=== PATIENT | male | born 1940 | race Caucasian/White ===

== ENCOUNTER → 2018-07-14 12:41 | Outpatient (CLI) | payer MEDICARE, MEDICAID, SELFPAY ==
[2014-10-31 20:11] VITALS: BMI 23.0
--- NOTE | 2018-07-14 09:50 | ABS_PTH ---
PATIENT: PAPITO SAM LOC: [facility] U#:[id number] AGE/SX: 85/M ROOM: RE07/14/[address]: Dr. Roque Bower MD : [id number] BED: DIS: SPEC #: [id number] RECD: 07/14/18 12:17 STATUS: RENNY VIKY #: [id number] SHAYNA: 07/14/18 09:[address]: Roque Bower DEPT: SURGICAL PATHOLOGY RECD BY: Mark Garcia Tissues: Abdomen, NOS Procedures: Special Stain Group I Surgery Specimen Level IV AFB Stain (control) GMS Stain (control) HEADER OPERATION: Wound debridement abdomen PRE-OP DIAGNOSIS: Abdominal abscess TISSUE SUBMITTED: Abdominal tissue MICROSCOPIC DIAGNOSIS Skin and soft tissue of abdomen, excision: Consistent with ulceration and associated abscess formation. Negative for acid-fast bacilli and fungal organisms. AM:wilder 07/15/18 COMMENT Case has been reviewed in consultation with Dr. Fernandez who concurs with the above diagnosis. IDC:SJ MICROSCOPIC DESCRIPTION Slides are reviewed. GROSS DESCRIPTION Received in fixative is one container labeled with the patient's name and designated abdomen abscess. The specimen consists of an ellipse of light arechiga excised skin measuring 2.7 x 1.6 and depth of excision measuring 0.6 cm. The specimen is inked, serially sectioned and totally submitted in two cassettes. / AM:wilder 07/14/18 TC:2 CPT: 62925, 12702 x2
--- OUTSIDE RECORDS SUMMARY | 2018-10-15 17:54 | XMS RPT_ITS ---
:1940 Author Organization OHIP Care Team Providers Name Role Phone OSMANY WATT Attending Unavailable OSMANY WATT Referring Unavailable OSMANY WATT Attending Unavailable OSMANY WATT Referring Unavailable CRISTOBAL CARVAJAL MD Admitting Unavailable CRISTOBAL CARVAJAL MD Attending Unavailable CRISTOBAL CARVAJAL MD Primary Care Unavailable CRISTOBAL CARVAJAL MD Consulting Unavailable PROVIDER, UNKNOWN Consulting Unavailable PROVIDER, UNKNOWN Consulting Unavailable PROVIDER, UNKNOWN Consulting Unavailable CRISTOBAL CARVAJAL MD Admitting Unavailable CRISTOBAL CARVAJAL MD Attending Unavailable CRISTOBAL CARVAAJL MD Primary Care Unavailable CRISTOBAL CARVAJAL MD Consulting Unavailable PROVIDER, UNKNOWN Consulting Unavailable PROVIDER, UNKNOWN Consulting Unavailable PROVIDER, UNKNOWN Consulting Unavailable Sathish Roque Attending Unavailable Cebul Roque Referring Unavailable Cebul Roque Attending Unavailable LATOUFJASONROS Referring Unavailable Cebul, Roque Attending Unavailable LATOUFCRISTOBAL Referring Unavailable PROBLEMS PROBLEMS DATE TYPE CONDITION / CODE ATTENDING STATUS SOURCE 08/03/2018 Unknown L72.3 - Sebaceous Cebul, Roque Active [facility] / [facility] L72.3(ICD-10) Hospital Repository 08/03/2018 Unknown L08.9 - Local Cebul, Roque Active [facility] infection of the Community skin and Hospital subcutaneous Repository tissue, unspecified / L08.9(ICD-10) 07/21/2018 Unknown L02.211 - Roque Bower Active [facility] Cutaneous abscess Community of abdominal wall Hospital / L02.211(ICD-10) Repository 07/19/2018 Unknown I96 - Gangrene, Roque Bower Active [facility] not elsewhere Community classified / Hospital I96(ICD-10) Repository 04/20/2018 Active Unknown / OSMANY WATT Active [facility](Unknown) Clinic Main [place] Repository 07/27/2017 Admitting Type 2 diabetes LATOUF, BUTROS Active [facility] Diagnosis mellitus with [facility] diabetic [facility] kidney disease / Repository E1122(ICD-10) 07/27/2017 Principle Type 2 diabetes LATOUF, BUTROS Active [facility] [place] Diagnosis mellitus with [facility] diabetic [facility] kidney disease / Repository E1122(ICD-10) 07/27/2017 Secondary Hypertensive LATOUF, BUTROS Active [facility] Diagnosis chronic kidney [facility] disease with stage Hospital 1 through stage 4 Repository chronic kidney disease, or unspecified chronic kidney disease / I129(ICD-10) 07/27/2017 Secondary Chronic kidney LATOUF, BUTROS Active [facility] [place] Diagnosis disease, stage 3 [facility] (moderate) / Hospital N183(ICD-10) Repository 07/27/2017 Secondary Heart failure, LATOUF, BUTROS Active [facility] [place] Diagnosis unspecified / [facility] I509(ICD-10) Hospital Repository 07/27/2017 Secondary Other terminal block assembler LATOUF, BUTROS Active [facility] [place] Diagnosis (current) drug [facility] therapy / Hospital U21838(ICD-10) Repository 07/27/2017 Secondary Hyperlipidemia, LATOUF, BUTROS Active [facility] [place] Diagnosis unspecified / [facility] E785(ICD-10) Hospital Repository 07/27/2017 Secondary Difficulty in LATOUF, BUTROS Active [facility] [place] Diagnosis walking, not [facility] Hospital classified / Repository R262(ICD-10) 07/27/2017 Secondary Muscle weakness LATOUF, BUTROS Active [facility] [place] Diagnosis (generalized) / [facility] M6281(ICD-10) Hospital Repository 07/27/2017 Secondary Encounter for LATOUF, BUTROS Active [facility] [place] Diagnosis screening for [facility] malignant neoplasm [facility] of prostate / Repository Z125(ICD-10) PROCEDURES PROCEDURES No Procedure Records FoundRESULTS RESULTS HEMOGLOBIN A1C Collected: 08/03/2018 Status: F Source: [facility] 4:10 AM CLINIC REFERENCE REPOSITORY TYPE CODE TESTS RESULT OUT OF REFERENCE UNITS RANGE LAB HGBA1C(BHUMI 4.3-5.6 % NC) High Hemoglobin A1c 6.1 LAB HBA0(LOINC mg/dL ) Est. Average Glucose 128 Performed By: #### HBA1C #### [facility] Routine Lab [address] [place] [address] CBC (NO DIFF) Collected: 08/03/2018 Status: F Source: [facility] 4:10 AM [facility] REPOSITORY TYPE CODE TESTS RESULT OUT OF RANGE REFERENCE UNITS LAB CBC (NO DIFF)(LOINC ) CBC (NO DIFF) Result Comment: CBC(WITHOUT DIFFERENTIAL) LAB WBC(LOINC) 4.5 - 10.8 x 10EE3/UL WBC 10.8 LAB RBC(LOINC) 4.50 - x 10EE6/UL 6.00 RBC Low 4.21 LAB HEMOGLOBIN(LOINC 13.0 - g/dl ) 17.5 HEMOGLOBIN 13.7 LAB HEMATOCRIT(LOINC 40.0 - % ) 52.0 HEMATOCRIT 40.0 LAB MCV(LOINC) 81 - 98 fl MCV 95 LAB MCH(LOINC) 27 - 33 pg MCH 32 LAB MCHC(LOINC) 32 - 36 X10 3 MCHC 34 LAB RDW/CV(LOINC) 12.0 - % 15.6 RDW/CV 13.1 LAB PLATELET(LOINC) 150 - 450 x10EE3/UL PLATELET 247 LAB MPV(LOINC) 6.4 - 10.5 fl MPV 8.6 Result Comment: {CB] Performed By: #### [id number] #### [facility],[address] [place] [address] CMP WITH EGFR Collected: 08/03/2018 Status: F Source: [facility] 4:10 AM [facility] REPOSITORY TYPE CODE TESTS RESULT OUT OF RANGE REFERENCE UNITS LAB CMP with eGFR(LOINC) CMP with eGFR Result Comment: COMPREHENSIVE METABOLIC PANEL LAB SODIUM(LOINC) 136 - 145 mmol/l SODIUM 138 LAB POTASSIUM(LOINC) 3.5 - 5.1 mmol/L POTASSIUM 4.1 LAB CHLORIDE(LOINC) 98 - 107 mmol/L CHLORIDE 101 LAB CO2(LOINC) 21.0 - mmol/L 31.0 CO2 30.5 LAB GLUCOSE(LOINC) 74 - 106 mg/dl GLUCOSE High 124 LAB BUN(LOINC) 6 - 20 mg/dl BUN High 24 LAB CREATININE(LOINC) 0.7 - 1.3 mg/dl CREATININE 1.1 LAB AST/SGOT(LOINC) 13 - 39 U/L AST/SGOT 13 LAB ALK PHOS(LOINC) 38 - 126 U/L ALK PHOS Low 37 LAB CALCIUM(LOINC) 8.6 - mg/dl 10.2 CALCIUM 9.1 LAB TOTAL 6.4 - 8.3 g/dl PROTEIN(LOINC) TOTAL PROTEIN 6.4 LAB ALBUMIN(LOINC) 3.4 - 4.8 g/dL ALBUMIN 3.7 LAB GLOBULIN(LOINC) 1.5 - 3.8 G/DL GLOBULIN 2.7 LAB A/G RATIO(LOINC) 0.9 - 1.6 A/G RATIO 1.4 LAB TOTAL BILI(LOINC) 0.0 - 1.5 mg/dl TOTAL BILI 0.5 LAB B/C RATIO(LOINC) 0 - 30 ratio B/C RATIO 22 LAB ALT/SGPT(LOINC) 10 - 40 U/L ALT/SGPT Low 9 LAB ANION GAP(LOINC) 10 - 20 mmol/L ANION GAP 11 LAB AGE(LOINC) years AGE 78 LAB eGFR(LOINC) 60 - 999 ML/MINUTE eGFR >60 LAB eGFR(AA)(LOINC) 60 - 999 ML/MINUTE eGFR(AA) >60 Result Comment: ACCORDING TO THE NATIONAL KIDNEY DISEASE EDUCATION PROGRAM(NKDE), A NORMAL eGFR IS A VALUE GREATER THAN OR EQUAL TO 60 ML/MIN/1.73 SQ METERS. CHRONIC KIDNEY DISEASE: <60mL/MIN/1.73 SQ METERS KIDNEY FAILURE: <15mL/MIN/1.73 SQ METERS THIS TEST SHOULD ONLY BE USED FOR PATIENTS 18 YEARS OF AGE AND OLDER. Performed By: #### [id number] #### [facility],[address] [place] [address] LIPID PROFILE Collected: 08/03/2018 Status: F Source: [facility] 4:10 AM [facility] REPOSITORY TYPE CODE TESTS RESULT OUT OF REFERENCE UNITS RANGE LAB LIPID PROFILE(LOIN C) LIPID PROFILE Result Comment: LIPID PROFILE LAB TRIGLYCERIDE(LOINC) 0 - 150 mg/dl TRIGLYCERIDE 143 LAB CHOLESTEROL(LOINC) 0 - 200 mg/dl CHOLESTEROL 78 LAB HDL(LOINC) 40 - 60 mg/dl HDL Low 24 LAB CHOL/HDL(LOINC) 0.0 - 5.0 CHOL/HDL 3.3 LAB LDL(LOINC) 0 - 129 mg/dl LDL 25 Performed By: #### [id number] #### [facility],[address] [place] [address] HGB A1C [CCL] Collected: 08/03/2018 Status: F Source: [facility] 4:10 AM [facility] REPOSITORY TYPE CODE TESTS RESULT OUT OF RANGE REFERENCE UNITS LAB HGB A1C [CCL](LOINC ) HGB A1C [CCL] Result Comment: _HEMOGLOBIN A1C_ HGB A1C [CCL] Reported: 08/04/2018 11:15 Status=F TEST RESULT FLAG RANGE UNITS Hemoglobin A1c 6.1 H 4.3-5.6 % 08/04/[email or web address].[email or web address].[email or web address].ATLR [place] [employer] guidelines indicate that patients with HgbA1c in the range 5.7-6.4% are at increased risk for development of diabetes, and intervention by lifestyle modification may be beneficial. HgbA1c greater or equal to 6.5% is considered diagnostic of diabetes. Est. Average Glucose 128 mg/dL 08/04/18.1119.rfl.COMPLETE.ATLR eAG: (Estimated average glucose) is a calculated value from HgbA1c and is lifeline representatives of the average blood glucose level in the last 2-3 month period. [facility] [address] [place] [id number] Hanna Hazel M.D. [id number] Performed By: #### [id number] #### [facility],[address] [id number] SURGERY VISIT REPORT Observed: 07/29/2018 Status: F Source: [place] 9:41 AM [facility] REPOSITORY [facility] [address] [place] [address] OFFICE VISIT Date of Service: 07/29/18 MR#: [id number] Acct: [id number] Name: ABDIFATAH SPRAGUE Rep #: [id number] : 1940 Provider: Roque Bower MD Age/Sex: 78/M Location: [facility] Status: Signed Intake Intake Visit Reasons: 1 month F/U Abscess Chief Complaint: left abdominal abscess Barrel Coater Required: No Is patient in pain?: No Allergies No Known Allergies Allergy (Verified 07/29/18 09:31) Medications Metformin HCl [Glucophage] 850 mg PO TIDCM 10/27/14 [History Confirmed 07/29/18] Aspirin E.C. [Ecotrin] 81 mg PO DAILY@0800 #30 tab 11/03/14 [Rx Confirmed 07/29/18] Metoprolol(XL)Succ [Toprol Xl (Beta Siomara)] 100 mg PO DAILY #30 tab 11/03/14 [Rx Confirmed 07/29/18] Multivitamins,Ther W-Minerals [Multivitamin With Minerals] 1 tab PO DAILY #30 tab 11/03/14 [Rx Confirmed 07/29/18] Potassium Chloride [K-Dur] 20 meq PO DAILY 30 Days tab 11/03/14 [Rx Confirmed 07/29/18] Pravastatin [Pravachol] 40 mg PO DAILY #30 tab 11/03/14 [Rx Confirmed 07/29/18] Ramipril [Altace] 5 mg PO DAILY #30 cap 11/03/14 [Rx Confirmed 07/29/18] Spironolactone [Aldactone] 25 mg PO DAILY #30 tab 11/03/14 [Rx Confirmed 07/29/18] donepezil 10 mg tablet 10 mg PO DAILY 07/14/18 [History Confirmed 07/29/18] ipratropium bromide 0.03 % nasal spray 2 spray INTRANASAL BID-TID PRN 07/14/18 [History Confirmed 07/29/18] lisinopril 20 mg tablet 20 mg PO BID tab 07/14/18 [History Confirmed 07/29/18] memantine 10 mg tablet 10 mg PO BID 07/14/18 [History Confirmed 07/29/18] Subjective Details: 78-year-old gentleman returns status post wide debridement of an infected sebaceous cyst left lower quadrant of his abdomen that I performed for him on July 14, 2018. He is currently still having a treated with saline wet-to-dry dressing changes Objective Details: Left lower quadrant of the abdomen has a nicely granulating wound. Very healthy granulation tissue. To the left lateral of the wound there is still approximately 2-3 cm of induration and very slight blanching erythema. It is minimally tender to palpation. There is no discharge Assessment AND Plan Problems 1. Infected sebaceous cyst of skin L72.3; L08.9 Plan On reviewing his previous debridement note sebaceous cyst had ruptured making clear identification of the cyst lining very difficult. The patient may very well have residual cyst wall left lateral to the wound. However he is completely granulating and there is no site for probing and there is no drainage. I recommend ongoing saline wet-to-dry dressing changes and conservative management. Hopefully as he continues to epithelialize and close his wound that the slight induration and erythema laterally will also resolve. If not then this may reflect that he has residual cyst material present at that location which might require a more aggressive debridement of that area as well. He is really not very symptomatic at the moment. I do not believe that reexploration at this time is indicated as I believe he has a very good chance of for self resolution. Further office appointment can be pending his ongoing clinical progress. Roque Bower M.D., F.A.C.S. cc:Dr Carvajal Coding Level of Care Code Off vis,est,level 2 Diagnoses Infected sebaceous cyst of skin L72.3; L08.9 01/10/12 940 <Electronically signed by Roque Bower MD> Date Roque Bower MD Cosigner Signature: Date (if applicable) CC: Cristobal Carvajal SURGERY VISIT REPORT Observed: 07/14/2018 Status: F Source: [place] 5:01 PM [facility] REPOSITORY [facility] [address] [place] [address] [address] [place] [address] OFFICE VISIT Date of Service: 07/14/18 MR#: [id number] Acct: [id number] Name: SPRAGUEABDIFATAH Monica Rep #: [id number] : 1940 Provider: Roque Bower MD Age/Sex: 78/M Location: [facility] Status: Signed Intake Intake Visit Reasons: Abdomen Abscess Chief Complaint: left abdominal abscess Barrel Coater Required: No Is patient in pain?: Yes Allergies No Known Allergies Allergy (Verified 07/14/18 10:22) Medications Metformin HCl [Glucophage] 850 mg PO TIDCM 10/27/14 [History Confirmed 07/14/18] Aspirin E.C. [Ecotrin] 81 mg PO DAILY@0800 #30 tab 11/03/14 [Rx Confirmed 07/14/18] Metoprolol(XL)Succ [Toprol Xl (Beta Siomara)] 100 mg PO DAILY #30 tab 11/03/14 [Rx Confirmed 07/14/18] Multivitamins,Ther W-Minerals [Multivitamin With Minerals] 1 tab PO DAILY #30 tab 11/03/14 [Rx Confirmed 07/14/18] Potassium Chloride [K-Dur] 20 meq PO DAILY 30 Days tab 11/03/14 [Rx Confirmed 07/14/18] Pravastatin [Pravachol] 40 mg PO DAILY #30 tab 11/03/14 [Rx Confirmed 07/14/18] Ramipril [Altace] 5 mg PO DAILY #30 cap 11/03/14 [Rx Confirmed 07/14/18] Spironolactone [Aldactone] 25 mg PO DAILY #30 tab 11/03/14 [Rx Confirmed 07/14/18] donepezil 10 mg tablet 10 mg PO DAILY 07/14/18 [History Confirmed 07/14/18] ipratropium bromide 0.03 % nasal spray 2 spray INTRANASAL BID-TID PRN 07/14/18 [History Confirmed 07/14/18] lisinopril 20 mg tablet 20 mg PO BID tab 07/14/18 [History Confirmed 07/14/18] memantine 10 mg tablet 10 mg PO BID 07/14/18 [History Confirmed 07/14/18] PFSH Medical History Infected sebaceous cyst of skin (Acute) 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) Diabetes (Chronic) CKD (chronic kidney disease) stage 3, GFR 30-59 ml/min (Chronic) HTN (hypertension) (Chronic) Alzheimer disease (Acute) Depression (Acute) Hyperlipidemia (Acute) Surgical History History of hernia repair (Acute) Status post full thickness skin graft (Acute) Social History Smoking Status: Current every day smoker HPI HPI HPI: ABDIFATAH SPRAGUE, is a 78 M who presents to the office today for surgical consult regarding a 3-4-week history of a progressive infection left lower quadrant of his abdomen ROS General General: No weight change, appetite, fatigue, colon cancer, breast cancer or weakness HEENT HEENT: No difficulty swallowing, eye injury, eye surgery, swollen glands or hoarseness Endo Endocrine: Yes diabetes mellitus; no thyroid disease, thyroid cancer, Hair loss, heat intolerance or cold intolerance Musc Musculoskeletal: Yes arthritis; no back problems, rheumatoid arthritis, gout or joint pain Cardio Cardiovascular: Yes high blood pressure; no murmur, pacemaker, heart disease, atrial fibrillation, heart attack, heart stent, palpitations, shortness of breat with exertion or chest pain Additional Details: CHF Resp Respiratory: No shortness of breath, No sleep apnea, No cough, No COPD, No asthma, No emphysema, No wheezing Gastro Gastrointestinal: No abdominal pain, No nausea or vomiting, No diarrhea, No constipation, No blood in stool, No acid reflux, No hemorrhoids, No ulcers, No gallbladder problem, No black,tarry stools Prudencio Hematologic: No blood thinners, No blood disorders, No bleeding, No anemia, No blood clots Neuro Neurologic: No weakness Exam Cardio Heart Sounds: no murmurs Office Procedures [facility] [place] Procedure Performed By: Procedure performed by: obed Details Procedure note Debridement skin necrosis left lower quadrant the abdomen with debridement of infected sebaceous cyst Timeout and informed consent was obtained. 78-year-old gentleman was taken the procedure room placed on the table. The left lower quadrant of the abdomen he has a 1.5 cm diameter area of skin necrosis with eschar. There is slight purulent drainage. There is erythema that extends for approximately 8 cm. This area was prepped with Betadine. 1% lidocaine mixed 50- 50 with 0.5% Marcaine was used as a local anesthetic. A total of 25 cc was used. A transverse elliptical excision sharply was performed with a scalpel measuring 3 x 1.8 cm. Full-thickness transdermal excision was performed of the necrotic skin. That specimens were sent for analysis. The dissection was performed down into the subcutaneous tissue. That is where infected sebaceous material was encountered. The exact lining of the cyst could not be identified. Where possible the cyst lining was removed. Sharp dissection was used to further remove necrotic tissue and blunt dissection was used to remove further cyst material. The cavity extended laterally for approximately 3 cm. This was completely evacuated. The wound was then packed with 2 x 2 gauze. Sterile cover dressings were applied. Wound culture was obtained. It is anticipated that saline wet-to-dry dressing changes will be initiated. The patient does have chronic renal insufficiency. He has been recently treated with cephalexin 500 mg p.o. 3 times daily and this will be reinstituted while awaiting cultures. I anticipate that with this aggressive sharp scalpel debridement procedure that he will improve nicely. Roque Bower M.D., F.A.C.S. Assessment AND Plan Problems 1. Infected sebaceous cyst of skin L72.3; L08.9 Plan Infected sebaceous cyst with dermal necrosis and cellulitis and abscess left lower quadrant of the abdomen successfully sharply debrided. Antibiotics prescribed. Wound culture pending. Saline wet-to-dry dressing changes prescribed. Office follow-up scheduled for 2 weeks. At this point progress and prognosis are felt to be good. Roque Bower M.D., F.A.C.S. Orders Orders: Coding Level of Care Code Attention Market Investigator Diagnoses Infected sebaceous cyst of skin L72.3; L08.9 Comment [id number] 07/14/18 1701 <Electronically signed by Roque Bower MD> Date Roque Bower MD Cosigner Signature: Date (if applicable) CC: Cristobal Carvajal Observed: 07/14/2018 Status: F Source: [place] CULTURE, WOUND 12:50 PM [facility] REPOSITORY Gram Stain Gram Stain 1+ White Blood Cells 2+ Gram positive cocci Wound Culture No growth aerobically. Performed By: #### [id number] #### [facility] [address] [place] [address]. [place], [address] ABSCESS (CHOOSE Observed: 07/14/2018 Status: F Source: [place] [facility]) 9:50 AM [facility] REPOSITORY Patient: ABDIFATAH SPRAGUE : 1940 (78/M) Acct Num: [id number] Phys: Roque Bower MD Unit Num: [id number] Loc: LABSPEC Specimen: [id number] Received: 07/14/18 - 1217 Spec Type: Abscess TISSUES 1 TISSUES: Abdomen, NOS COMMENT Case has been reviewed in consultation with Dr. Fernandez who concurs with the above diagnosis. IDC:SJ GROSS DESCRIPTION Received in fixative is one container labeled with the patient's name and designated abdomen abscess. The specimen consists of an ellipse of light arechiga excised skin measuring 2.7 x 1.6 and depth of excision measuring 0.6 cm. The specimen is inked, serially sectioned and totally submitted in two cassettes. / AM:wilder 07/14/18 TC:2 CPT: 33863, 46720 x2 HEADER OPERATION: Wound debridement abdomen PRE-OP DIAGNOSIS: Abdominal abscess TISSUE SUBMITTED: Abdominal tissue MICROSCOPIC DESCRIPTION Slides are reviewed. MICROSCOPIC DIAGNOSIS Skin and soft tissue of abdomen, excision: Consistent with ulceration and associated abscess formation. Negative for acid-fast bacilli and fungal organisms. AM:wilder 07/15/18 Signed Claude Fernandez MD 07/16/18 <signature on file> Performed By: #### RIMA #### [facility] [address] [place] [address], [address] URINALYSIS Collected: 05/04/2018 Status: F Source: [facility] 3:30 AM [facility] REPOSITORY TYPE CODE TESTS RESULT OUT OF REFERENCE UNITS RANGE LAB URINALYSIS (LOINC) URINALYSIS Result Comment: URINALYSIS LAB Specimen Type(LOINC) Specimen Type Clean catch LAB Color(LOINC) NORMAL: YELLOW Color p.yel LAB Clarity(LOINC) NORMAL: CLEAR Clarity clear LAB ph(LOINC) NORMAL: 5.0-8.0 ph 6.5 LAB Protein(LOINC) NORMAL: NEGATIVE Protein NEG LAB Glucose(LOINC) NORMAL: NORMAL Glucose NORM LAB Ketone(LOINC) NORMAL: NEGATIVE Ketone NEG LAB Bilirubin(LOINC) NORMAL: NEGATIVE Bilirubin NEG LAB Blood(LOINC) NORMAL: NEGATIVE Blood NEG LAB Urobilinog(LOINC) NORMAL: NORMAL Urobilinog NORM LAB Sp Rosalie(LOINC) NORMAL: 1.010-1.030 Sp Rosalie 1.015 LAB Nitrite(LOINC) NORMAL: NEGATIVE Nitrite POS LAB Leukocytes(LOINC) NORMAL: NEGATIVE Leukocytes NEG LAB Microscopic(LOINC) Microscopic SEE BELOW Result Comment: MICROSCOPIC LAB Wbc(LOINC) 0-5/hpf Wbc 6-10 LAB Rbc(LOINC) 0-3/hpf Rbc 0-5 LAB Casts(LOINC) Casts NONE LAB Crystals(LOINC) Crystals NONE LAB Amorphous(LOINC) Amorphous NONE LAB Bacteria(LOINC) Bacteria 2+ LAB Epi Cells(LOINC) Epi Cells NONE LAB Mucous(LOINC) Mucous NONE LAB Yeast(LOINC) Yeast NONE Performed By: #### [id number] #### [facility],[address] [place] [id number] CBC (NO DIFF) Collected: 05/03/2018 Status: F Source: [facility] [place] 3:28 AM [facility] REPOSITORY TYPE CODE TESTS RESULT OUT OF RANGE REFERENCE UNITS LAB CBC (NO DIFF)(LOINC ) CBC (NO DIFF) Result Comment: CBC(WITHOUT DIFFERENTIAL) LAB WBC(LOINC) 4.5 - 10.8 x 10EE3/UL WBC 9.8 LAB RBC(LOINC) 4.50 - x 10EE6/UL 6.00 RBC Low 4.00 LAB HEMOGLOBIN(LOINC) 13.0 - g/dl 17.5 HEMOGLOBIN 13.2 LAB HEMATOCRIT(LOINC) 40.0 - % 52.0 Low HEMATOCRIT 38.3 LAB MCV(LOINC) 81 - 98 fl MCV 96 LAB MCH(LOINC) 27 - 33 pg MCH 33 LAB MCHC(LOINC) 32 - 36 X10 3 MCHC 35 LAB RDW/CV(LOINC) 12.0 - % 15.6 RDW/CV 13.6 LAB PLATELET(LOINC) 150 - 450 x10EE3/UL PLATELET 247 LAB MPV(LOINC) 6.4 - 10.5 fl MPV 8.7 Result Comment: {CB] Performed By: #### [id number] #### [place] [address] PSA CANCER SCREENING Collected: 05/03/2018 Status: F Source: [facility] [place] ([id number]) 3:28 AM [facility] REPOSITORY TYPE CODE TESTS RESULT OUT OF RANGE REFERENCE UNITS LAB PSA(LOINC) 0.00 - 4.00 ng/ml PSA 0.98 Performed By: #### [id number] #### [place] [id number] CMP WITH EGFR Collected: 05/03/2018 Status: F Source: [facility] [place] 3:28 [facility] REPOSITORY TYPE CODE TESTS RESULT OUT OF RANGE REFERENCE UNITS LAB CMP with eGFR(LOINC) CMP with eGFR Result Comment: COMPREHENSIVE METABOLIC PANEL LAB SODIUM(LOINC) 136 - 145 mmol/l SODIUM 139 LAB POTASSIUM(LOINC) 3.5 - 5.1 mmol/L POTASSIUM 3.8 LAB CHLORIDE(LOINC) 98 - 107 mmol/L CHLORIDE 102 LAB CO2(LOINC) 21.0 - mmol/L 31.0 CO2 29.5 LAB GLUCOSE(LOINC) 74 - 106 mg/dl GLUCOSE 100 LAB BUN(LOINC) 6 - 20 mg/dl BUN 16 LAB CREATININE(LOINC) 0.7 - 1.3 mg/dl CREATININE 1.0 LAB AST/SGOT(LOINC) 13 - 39 U/L AST/SGOT Low 12 LAB ALK PHOS(LOINC) 38 - 126 U/L ALK PHOS Low 34 LAB CALCIUM(LOINC) 8.6 - mg/dl 10.2 CALCIUM 8.7 LAB TOTAL PROTEIN(LOINC) 6.4 - 8.3 g/dl TOTAL Low PROTEIN 6.1 LAB ALBUMIN(LOINC) 3.4 - 4.8 g/dL ALBUMIN 3.5 LAB GLOBULIN(LOINC) 1.5 - 3.8 G/DL GLOBULIN 2.6 LAB A/G RATIO(LOINC) 0.9 - 1.6 A/G RATIO 1.3 LAB TOTAL BILI(LOINC) 0.0 - 1.5 mg/dl TOTAL BILI 0.3 LAB B/C RATIO(LOINC) 0 - 30 ratio B/C RATIO 16 LAB ALT/SGPT(LOINC) 10 - 40 U/L ALT/SGPT Low 8 LAB ANION GAP(LOINC) 10 - 20 mmol/L ANION GAP 11 LAB AGE(LOINC) years AGE 78 LAB eGFR(LOINC) 60 - 999 ML/MINUTE eGFR >60 LAB eGFR(AA)(LOINC) 60 - 999 ML/MINUTE eGFR(AA) >60 Result Comment: ACCORDING TO THE NATIONAL KIDNEY DISEASE EDUCATION PROGRAM(NKDE), A NORMAL eGFR IS A VALUE GREATER THAN OR EQUAL TO 60 ML/MIN/1.73 SQ METERS. CHRONIC KIDNEY DISEASE: <60mL/MIN/1.73 SQ METERS KIDNEY FAILURE: <15mL/MIN/1.73 SQ METERS THIS TEST SHOULD ONLY BE USED FOR PATIENTS 18 YEARS OF AGE AND OLDER. Performed By: #### [id number] #### [facility],[address] [place] [id number] TSH Collected: 05/03/2018 Status: F Source: [facility] 3:28 AM [facility] REPOSITORY TYPE CODE TESTS RESULT OUT OF RANGE REFERENCE UNITS LAB TSH(LOINC) 0.34 - 5.60 uIU/ml TSH 0.60 Performed By: #### [id number] #### Ad [place] [address] LIPID PROFILE Collected: 05/03/2018 Status: F Source: [facility] [place] 3:28 AM [facility] [facility] TYPE CODE TESTS RESULT OUT OF REFERENCE UNITS RANGE LAB LIPID PROFILE(LOIN C) LIPID PROFILE Result Comment: LIPID PROFILE LAB TRIGLYCERIDE(LOINC) 0 - 150 mg/dl TRIGLYCERIDE 148 LAB CHOLESTEROL(LOINC) 0 - 200 mg/dl CHOLESTEROL 80 LAB HDL(LOINC) 40 - 60 mg/dl HDL Low 25 LAB CHOL/HDL(LOINC) 0.0 - 5.0 CHOL/HDL 3.2 LAB LDL(LOINC) 0 - 129 mg/dl LDL 25 Performed By: #### [id number] #### [place] [address] HGB A1C Collected: 05/03/2018 Status: F Source: AD ORDOÑEZGENNA 3:28 AM [facility] REPOSITORY TYPE CODE TESTS RESULT OUT OF RANGE REFERENCE UNITS LAB HGB 4.4 - 6.4 % A1C(LOINC) HGB A1C 5.9 Result Comment: {HB] {A1] Performed By: #### [id number] #### [place] [id number] PROGRESS Observed: 04/20/2018 Status: COMPLETED Source: RIO OSO 2:49 PM [facility] REPOSITORY O ID: [id number] Author: Osmany Watt Service: (none) Author Type: Physician Type: Progress Notes Filed: 04/20/2018 3:07 PM Note Text: spasms are better than usual last injection may today dysport 300 units in 1.4cc ruth well try 6 months I have confirmed and edited as necessary the relevant ophthalmic history, ROS, and the neuro exam findings as obtained by others. I have seen and examined Abdifatah Sprague. I have discussed the case and the management of this patient's care with the Resident/Fellow, if applicable. I also have reviewed and agree with the assessment and plan as stated above and agree with all of its relevant components. ? Osmany Watt MD CMP WITH EGFR Collected: 02/01/2018 Status: F Source: DA ORDOÑEZGENNA 4:10 AM [facility] REPOSITORY TYPE CODE TESTS RESULT OUT OF RANGE REFERENCE UNITS LAB CMP with eGFR(LOINC) CMP with eGFR Result Comment: COMPREHENSIVE METABOLIC PANEL LAB SODIUM(LOINC) 136 - 145 mmol/l SODIUM 139 LAB POTASSIUM(LOINC) 3.5 - 5.1 mmol/L POTASSIUM 3.8 LAB CHLORIDE(LOINC) 98 - 107 mmol/L CHLORIDE 100 LAB CO2(LOINC) 21.0 - mmol/L 31.0 CO2 High 33.2 LAB GLUCOSE(LOINC) 74 - 106 mg/dl GLUCOSE High 107 LAB BUN(LOINC) 6 - 20 mg/dl BUN 17 LAB CREATININE(LOINC) 0.7 - 1.3 mg/dl CREATININE 1.1 LAB AST/SGOT(LOINC) 13 - 39 U/L AST/SGOT 17 LAB ALK PHOS(LOINC) 38 - 126 U/L ALK PHOS Low 37 LAB CALCIUM(LOINC) 8.6 - mg/dl 10.2 CALCIUM 8.9 LAB TOTAL 6.4 - 8.3 g/dl PROTEIN(LOINC) TOTAL PROTEIN 6.5 LAB ALBUMIN(LOINC) 3.4 - 4.8 g/dL ALBUMIN 3.7 LAB GLOBULIN(LOINC) 1.5 - 3.8 G/DL GLOBULIN 2.8 LAB A/G RATIO(LOINC) 0.9 - 1.6 A/G RATIO 1.3 LAB TOTAL BILI(LOINC) 0.0 - 1.5 mg/dl TOTAL BILI 0.5 LAB B/C RATIO(LOINC) 0 - 30 ratio B/C RATIO 15 LAB ALT/SGPT(LOINC) 10 - 40 U/L ALT/SGPT 12 LAB ANION GAP(LOINC) 10 - 20 mmol/L ANION GAP 10 LAB AGE(LOINC) years AGE 78 LAB eGFR(LOINC) 60 - 999 ML/MINUTE eGFR >60 LAB eGFR(AA)(LOINC) 60 - 999 ML/MINUTE eGFR(AA) >60 Result Comment: ACCORDING TO THE NATIONAL KIDNEY DISEASE EDUCATION PROGRAM(NKDE), A NORMAL eGFR IS A VALUE GREATER THAN OR EQUAL TO 60 ML/MIN/1.73 SQ METERS. CHRONIC KIDNEY DISEASE: <60mL/MIN/1.73 SQ METERS KIDNEY FAILURE: <15mL/MIN/1.73 SQ METERS THIS TEST SHOULD ONLY BE USED FOR PATIENTS 18 YEARS OF AGE AND OLDER. Performed By: #### [id number] #### [place] [address] LIPID PROFILE Collected: 02/01/2018 Status: F Source: AD [place] 4:10 AM [facility] REPOSITORY TYPE CODE TESTS RESULT OUT OF REFERENCE UNITS RANGE LAB LIPID PROFILE(LOIN C) LIPID PROFILE Result Comment: LIPID PROFILE LAB TRIGLYCERIDE(LOINC) 0 - 150 mg/dl TRIGLYCERIDE 141 LAB CHOLESTEROL(LOINC) 0 - 200 mg/dl CHOLESTEROL 86 LAB HDL(LOINC) 40 - 60 mg/dl HDL Low 30 LAB CHOL/HDL(LOINC) 0.0 - 5.0 CHOL/HDL 2.9 LAB LDL(LOINC) 0 - 129 mg/dl LDL 28 Performed By: #### [id number] #### [place] [address] CBC (NO DIFF) Collected: 02/01/2018 Status: F Source: AD [place] 4:10 [facility] REPOSITORY TYPE CODE TESTS RESULT OUT OF RANGE REFERENCE UNITS LAB CBC (NO DIFF)(LOINC ) CBC (NO DIFF) Result Comment: CBC(WITHOUT DIFFERENTIAL) LAB WBC(LOINC) 4.5 - 10.8 x 10EE3/UL WBC 10.1 LAB RBC(LOINC) 4.50 - x 10EE6/UL 6.00 RBC Low 4.44 LAB HEMOGLOBIN(LOINC 13.0 - g/dl ) 17.5 HEMOGLOBIN 14.0 LAB HEMATOCRIT(LOINC 40.0 - % ) 52.0 HEMATOCRIT 41.9 LAB MCV(LOINC) 81 - 98 fl MCV 94 LAB MCH(LOINC) 27 - 33 pg MCH 32 LAB MCHC(LOINC) 32 - 36 X10 3 MCHC 33 LAB RDW/CV(LOINC) 12.0 - % 15.6 RDW/CV 13.5 LAB PLATELET(LOINC) 150 - 450 x10EE3/UL PLATELET 249 LAB MPV(LOINC) 6.4 - 10.5 fl MPV 8.6 Result Comment: {CB] Performed By: #### [id number] #### [place] [id number] HGB A1C Collected: 02/01/2018 Status: F Source: AD [place] 4:10 [facility] REPOSITORY TYPE CODE TESTS RESULT OUT OF RANGE REFERENCE UNITS LAB HGB 4.4 - 6.4 % A1C(LOINC) High HGB A1C 6.5 Result Comment: {HB] {A1] Performed By: #### [id number] #### [facility],[address] [place] [id number] PROGRESS Observed: 12/01/2017 Status: COMPLETED Source: RIO OSO 2:16 PM [facility] REPOSITORY HNO ID: [id number] Author: Alec Ramos (Glenn) Service: (none) Author Type: Fellow Type: Progress Notes Filed: 12/01/2017 4:01 PM Note Text: BEB Last injection 05/2017 Did well Notes that spasm has returned Exam: Quad eyelid spasm Mrd 4, 3 bll cicatricial ectropion ISS 1,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 Patient understands. All questions answered. Patient wishes to proceed with fully informed consent. Discussed with patient these surgeries in most cases are performed with resident and/or fellow participation at the level deemed fit by Dr. Watt. Patient verbalizes an understanding. I have confirmed and edited as necessary the relevant ophthalmic history, ROS, and the neuro exam findings as obtained by others. I have seen and examined Regestiven Monica GonzalezSprague. I have discussed the case and the management of this patient's care with the Resident/Fellow, if applicable. I also have reviewed and agree with the assessment and plan as stated above and agree with all of its relevant components. CBC (NO DIFF) Collected: 11/02/2017 Status: F Source: [facility] 3:45 AM [facility] REPOSITORY TYPE CODE TESTS RESULT OUT OF RANGE REFERENCE UNITS LAB CBC (NO DIFF)(LOINC ) CBC (NO DIFF) Result Comment: CBC(WITHOUT DIFFERENTIAL) LAB WBC(LOINC) 4.5 - 10.8 x 10EE3/UL WBC High 11.0 LAB RBC(LOINC) 4.50 - x 10EE6/UL 6.00 RBC Low 4.03 LAB HEMOGLOBIN(LOINC 13.0 - g/dl ) 17.5 HEMOGLOBIN 13.1 LAB HEMATOCRIT(LOINC 40.0 - % ) 52.0 Low HEMATOCRIT 38.1 LAB MCV(LOINC) 81 - 98 fl MCV 95 LAB MCH(LOINC) 27 - 33 pg MCH 33 LAB MCHC(LOINC) 32 - 36 X10 3 MCHC 34 LAB RDW/CV(LOINC) 12.0 - % 15.6 RDW/CV 12.6 LAB PLATELET(LOINC) 150 - 450 x10EE3/UL PLATELET 403 LAB MPV(LOINC) 6.4 - 10.5 fl MPV 8.1 Result Comment: {CB] Performed By: #### [id number] #### [facility],[address] [place] [address] CMP WITH EGFR Collected: 11/02/2017 Status: F Source: [facility] 3:45 AM [facility] REPOSITORY TYPE CODE TESTS RESULT OUT OF RANGE REFERENCE UNITS LAB CMP with eGFR(INC) CMP with eGFR Result Comment: COMPREHENSIVE METABOLIC PANEL LAB SODIUM(LOINC) 136 - 145 mmol/l SODIUM 138 LAB POTASSIUM(LOINC) 3.5 - 5.1 mmol/L POTASSIUM 3.9 LAB CHLORIDE(LOINC) 98 - 107 mmol/L CHLORIDE 99 LAB CO2(LOINC) 21.0 - mmol/L 31.0 CO2 High 32.0 LAB GLUCOSE(LOINC) 74 - 106 mg/dl GLUCOSE 96 LAB BUN(LOINC) 6 - 20 mg/dl BUN 17 LAB CREATININE(LOINC) 0.7 - 1.3 mg/dl CREATININE 1.0 LAB AST/SGOT(LOINC) 13 - 39 U/L AST/SGOT 15 LAB ALK PHOS(LOINC) 38 - 126 U/L ALK PHOS 41 LAB CALCIUM(LOINC) 8.6 - mg/dl 10.2 CALCIUM 8.7 LAB TOTAL 6.4 - 8.3 g/dl PROTEIN(LOINC) TOTAL PROTEIN 6.6 LAB ALBUMIN(LOINC) 3.4 - 4.8 g/dL ALBUMIN 3.4 LAB GLOBULIN(LOINC) 1.5 - 3.8 G/DL GLOBULIN 3.2 LAB A/G RATIO(LOINC) 0.9 - 1.6 A/G RATIO 1.1 LAB TOTAL BILI(LOINC) 0.0 - 1.5 mg/dl TOTAL BILI 0.3 LAB B/C RATIO(LOINC) 0 - 30 ratio B/C RATIO 17 LAB ALT/SGPT(LOINC) 10 - 40 U/L ALT/SGPT 10 LAB ANION GAP(LOINC) 10 - 20 mmol/L ANION GAP 11 LAB AGE(LOINC) years AGE 77 LAB eGFR(LOINC) 60 - 999 ML/MINUTE eGFR >60 LAB eGFR(AA)(LOINC) 60 - 999 ML/MINUTE eGFR(AA) >60 Result Comment: ACCORDING TO THE NATIONAL KIDNEY DISEASE EDUCATION PROGRAM(NKDE), A NORMAL eGFR IS A VALUE GREATER THAN OR EQUAL TO 60 ML/MIN/1.73 SQ METERS. CHRONIC KIDNEY DISEASE: <60mL/MIN/1.73 SQ METERS KIDNEY FAILURE: <15mL/MIN/1.73 SQ METERS THIS TEST SHOULD ONLY BE USED FOR PATIENTS 18 YEARS OF AGE AND OLDER. Performed By: #### [id number] #### [place] [id number] LIPID PROFILE Collected: 11/02/2017 Status: F Source: [facility] 3:45 [facility] REPOSITORY TYPE CODE TESTS RESULT OUT OF REFERENCE UNITS RANGE LAB LIPID PROFILE(LOIN C) LIPID PROFILE Result Comment: LIPID PROFILE LAB TRIGLYCERIDE(LOINC) 0 - 150 mg/dl High TRIGLYCERIDE 184 LAB CHOLESTEROL(LOINC) 0 - 200 mg/dl CHOLESTEROL 80 LAB HDL(LOINC) 40 - 60 mg/dl HDL Low 21 LAB CHOL/HDL(LOINC) 0.0 - 5.0 CHOL/HDL 3.8 LAB LDL(LOINC) 0 - 129 mg/dl LDL 22 Performed By: #### [id number] #### [place] [address] HGB A1C Collected: 11/02/2017 Status: F Source: [facility] 3:45 [facility] REPOSITORY TYPE CODE TESTS RESULT OUT OF RANGE REFERENCE UNITS LAB HGB 4.4 - 6.4 % A1C(LOINC) HGB A1C 6.3 Result Comment: {HB] {A1] Performed By: #### [id number] #### [place] [id number] LIPID PROFILE Collected: 09/29/2017 Status: F [facility] REPOSITORY TYPE CODE TESTS RESULT OUT OF REFERENCE UNITS RANGE LAB LIPID PROFILE(LOIN C) LIPID PROFILE Result Comment: LIPID PROFILE LAB TRIGLYCERIDE(LOINC) 0 - 150 mg/dl TRIGLYCERIDE 148 LAB CHOLESTEROL(LOINC) 0 - 200 mg/dl CHOLESTEROL 80 LAB HDL(LOINC) 40 - 60 mg/dl HDL Low 28 LAB CHOL/HDL(LOINC) 0.0 - 5.0 CHOL/HDL 2.9 LAB LDL(LOINC) 0 - 129 mg/dl LDL 22 Performed By: #### [id number] #### [place] [address] HEPATIC FUNCTION Collected: 09/29/2017 Status: F Source: AD CHEUNG PANEL 4:05 [facility] REPOSITORY TYPE CODE TESTS RESULT OUT OF REFERENCE UNITS RANGE LAB HEPATIC FUNCTION PANEL(LOINC) HEPATIC FUNCTION PANEL Result Comment: HEPATIC FUNCTION PROFILE LAB ALBUMIN(LOINC) 3.4 - 4.8 g/dL ALBUMIN 3.7 LAB ALK PHOS(LOINC) 38 - 126 U/L ALK PHOS 40 LAB AST/SGOT(LOINC) 13 - 39 U/L AST/SGOT 14 LAB ALT/SGPT(LOINC) 10 - 40 U/L ALT/SGPT 11 LAB TOTAL BILI(LOINC) 0.0 - 1.5 mg/dl TOTAL BILI 0.3 LAB DIRECT BILI(LOINC) 0.0 - 0.1 mg/dl DIRECT BILI 0.1 LAB TOTAL PROTEIN(LOINC) 6.4 - 8.3 g/dl Low TOTAL PROTEIN 6.3 Performed By: #### [id number] #### [place] [address] HGB A1C Collected: 09/29/2017 Status: F Source: AD [place] 4:05 [facility] REPOSITORY TYPE CODE TESTS RESULT OUT OF RANGE REFERENCE UNITS LAB HGB 4.4 - 6.4 % A1C(LOINC) HGB A1C 6.2 Result Comment: {HB] {A1] Performed By: #### [id number] #### [place] [address] CMP WITH EGFR Collected: 08/03/2017 Status: F Source: AD [place] 3:35 [facility] REPOSITORY TYPE CODE TESTS RESULT OUT OF RANGE REFERENCE UNITS LAB CMP with eGFR(LOINC) CMP with eGFR Result Comment: COMPREHENSIVE METABOLIC PANEL LAB SODIUM(LOINC) 136 - 145 mmol/l SODIUM 139 LAB POTASSIUM(LOINC) 3.5 - 5.1 mmol/L POTASSIUM 4.1 LAB CHLORIDE(LOINC) 98 - 107 mmol/L CHLORIDE 103 LAB CO2(LOINC) 21.0 - mmol/L 31.0 CO2 30.2 LAB GLUCOSE(LOINC) 74 - 106 mg/dl GLUCOSE High 111 LAB BUN(LOINC) 6 - 20 mg/dl BUN 19 LAB CREATININE(LOINC) 0.7 - 1.3 mg/dl CREATININE 1.1 LAB AST/SGOT(LOINC) 13 - 39 U/L AST/SGOT 13 LAB ALK PHOS(LOINC) 38 - 126 U/L ALK PHOS Low 34 LAB CALCIUM(LOINC) 8.6 - mg/dl 10.2 CALCIUM 8.8 LAB TOTAL 6.4 - 8.3 g/dl PROTEIN(LOINC) TOTAL Low PROTEIN 6.2 LAB ALBUMIN(LOINC) 3.4 - 4.8 g/dL ALBUMIN 3.6 LAB GLOBULIN(LOINC) 1.5 - 3.8 G/DL GLOBULIN 2.6 LAB A/G RATIO(LOINC) 0.9 - 1.6 A/G RATIO 1.4 LAB TOTAL BILI(LOINC) 0.0 - 1.5 mg/dl TOTAL BILI 0.4 LAB B/C RATIO(LOINC) 0 - 30 ratio B/C RATIO 17 LAB ALT/SGPT(LOINC) 10 - 40 U/L ALT/SGPT 10 LAB ANION GAP(LOINC) 10 - 20 mmol/L ANION GAP 10 LAB AGE(LOINC) years AGE 77 LAB eGFR(LOINC) 60 - 999 ML/MINUTE eGFR >60 LAB eGFR(AA)(LOINC) 60 - 999 ML/MINUTE eGFR(AA) >60 Result Comment: ACCORDING TO THE NATIONAL KIDNEY DISEASE EDUCATION PROGRAM(NKDE), A NORMAL eGFR IS A VALUE GREATER THAN OR EQUAL TO 60 ML/MIN/1.73 SQ METERS. CHRONIC KIDNEY DISEASE: <60mL/MIN/1.73 SQ METERS KIDNEY FAILURE: <15mL/MIN/1.73 SQ METERS THIS TEST SHOULD ONLY BE USED FOR PATIENTS 18 YEARS OF AGE AND OLDER. Performed By: #### [id number] #### [facility],[address] [place] [address] LIPID PROFILE Collected: 08/03/2017 Status: F Source: [place] 3:35 [facility] REPOSITORY TYPE CODE TESTS RESULT OUT OF REFERENCE UNITS RANGE LAB LIPID PROFILE(LOIN C) LIPID PROFILE Result Comment: LIPID PROFILE LAB TRIGLYCERIDE(LOINC) 0 - 150 mg/dl TRIGLYCERIDE 99 LAB CHOLESTEROL(LOINC) 0 - 200 mg/dl CHOLESTEROL 73 LAB HDL(LOINC) 40 - 60 mg/dl HDL Low 27 LAB CHOL/HDL(LOINC) 0.0 - 5.0 CHOL/HDL 2.7 LAB LDL(LOINC) 0 - 129 mg/dl LDL 26 Performed By: #### [id number] #### [facility],[address] [place] [address] CBC (NO DIFF) Collected: 08/03/2017 Status: F [facility]35 [facility] REPOSITORY TYPE CODE TESTS RESULT OUT OF RANGE REFERENCE UNITS LAB CBC (NO DIFF)(LOINC ) CBC (NO DIFF) Result Comment: CBC(WITHOUT DIFFERENTIAL) LAB WBC(LOINC) 4.5 - 10.8 x 10EE3/UL WBC 10.2 LAB RBC(LOINC) 4.50 - x 10EE6/UL 6.00 RBC Low 4.27 LAB HEMOGLOBIN(LOINC 13.0 - g/dl ) 17.5 HEMOGLOBIN 13.6 LAB HEMATOCRIT(LOINC 40.0 - % ) 52.0 HEMATOCRIT 40.9 LAB MCV(LOINC) 81 - 98 fl MCV 96 LAB MCH(LOINC) 27 - 33 pg MCH 32 LAB MCHC(LOINC) 32 - 36 X10 3 MCHC 33 LAB RDW/CV(LOINC) 12.0 - % 15.6 RDW/CV 12.4 LAB PLATELET(LOINC) 150 - 450 x10EE3/UL PLATELET 227 LAB MPV(LOINC) 6.4 - 10.5 fl MPV 8.6 Result Comment: {CB] Performed By: #### [id number] #### [facility],[address] [place] [address] HGB A1C Collected: 08/03/2017 Status: F Source: [facility] 3:35 [facility] REPOSITORY TYPE CODE TESTS RESULT OUT OF RANGE REFERENCE UNITS LAB HGB 4.4 - 6.4 % A1C(LOINC) HGB A1C 5.6 Result Comment: {HB] {A1] Performed By: #### [id number] #### [facility],[address] [facility] [address] ALLERGIES ALLERGIES DATE TYPE / CODE NAME / CODE REACTION SEVERITY SOURCE 07/29/2018 Drug No Known Unknown [facility] Allergy/416 Allergies/L70162 Hospital 674226(SNOM 0388(RXNORM) Repository ED CT) Drug NO KNOWN [facility] Class/23643 ALLERGIES Main [place] 1003(SNOMED Repository CT) ENCOUNTERS ENCOUNTERS ADMIT/DISCHARGE ACCOUNT ADMITTING ENCOUNTER LOCATION SOURCE NUMBER CLASS 07/29/2018/07/29/19 [id number] Ambulatory BMSBuilding:B [place] [facility] Repository 07/27/2018 [id number] [facility] Repository 07/14/2018 [id number] Ambulatory [facility] ing:LABSPEC Repository 07/14/2018/07/14/20 [id number] Ambulatory BMSBuilding:B [place] 18 [facility] Repository 04/20/2018/04/29/20 [id number] Ambulatory [address] Repository 12/01/2017/12/05/19 [id number] Ambulatory [address] Repository 07/27/2017/07/26/20 [id number] [facility], [facility] Repository PAYERS PAYERS ENCOUNTER GUARANTOR PAYER SUBSCRIBER SOURCE 07/29/2018 ABDIFATAH [place] Primary ABDIFATAH [id number] SR Insurance:MEDICARE FLACODOB: [place] [address] PART A BPolicy [id number] by [facility], Number: Repository ri [id number]: [id number] Date:2018-07-14 () 07/29/2018 Secondary ABDIFATAH [place] Insurance:MEDICAIDPol FRANKLINDOB: [facility] Number: [id number] Hospital [id number] Repository Date:2018-07-14 07/29/2018 Tertiary NOT GIVENUNK [place] Insurance:SELF PAY [facility] Number: Effective Repository Date:2018-07-14 07/27/2018 GARTH E Primary GARTH E [place] STEVENSDOB: Insurance:MEDICARE STEVENSDOB: [facility] [id number] RECURRING / REFERENCE [id number] Hospital [address] 83% [facility] Number: [address] Repository [place] [id number] [address] [place] [address], Date:Plan Name:[facility] [id number] [place] [id number]: (HP) 07/27/2018 Secondary GARTH E Ad [place] Insurance:MEDICAID STEVENSDOB: [facility] [id number] Hospital Number: 0 RT Repository [id number] [address] [place] [address], Date: Nc [id number] 07/14/2018 GARTH E Primary GARTH E [place] [id number] SR Insurance:MEDICARE STEVENSDOB: [facility] [address] PART A [facility] [id number] by [facility], Number: Repository ri [id number]: [id number] Date:2018-07-14 () 07/14/2018 Secondary GARTH E [place] Insurance:MEDICAIDPol STEVENSDOB: [facility] ic Number: [id number] Hospital [id number] Repository Date:2018-07-14 07/14/2018 Tertiary NOT GIVENUNK [place] Insurance:SELF PAY [facility] Number: Effective Repository Date:2018-07-14 07/14/2018 GARTH E Primary GARTH E [place] [id number] SR Insurance:MEDICARE STEVENSDOB: [facility] [address] PART A [facility] [id number] by [facility], Number: Repository ri [id number]: [id number] Date:2018-07-13 () 07/14/2018 Secondary GARTH E [place] Insurance:MEDICAIDPol [facility]: [facility] icy Number: [id number] Hospital [id number] Repository Date:2018-07-13 07/14/2018 Tertiary NOT GIVENUNK [place] Insurance:SELF PAY [facility] INSURANCENew [facility] Number: Effective Repository Date:2018-07-14 07/27/2017 ABDIFATAH LIZAMA: Insurance:MEDICARE FLACOB: [facility] [id number] RECURRING / REFERENCE [id number] 83% [facility] Number: [address] ST [address] Repository [place] [id number] [address] [place] [address], Date:Plan Name:[facility] [id number] Nc [id number]: () 07/27/2017 Secondary ABDIFATAH [place] Insurance:MEDICAID GEOVANNYKATELIN: [facility] [id number] Hospital Number: 0 ST [address] Repository [id number] [address] [place] [address], Date: Nc [id number]
== END ==
PROVIDERS: Referring Provider Surgery; Visit Provider Surgery
DX: L02.211 Cutaneous abscess of abdominal wall (principal)
CPT/HCPCS: 87070; 87205; 88304; 88305; 88312